=== PATIENT | female | born 1985 | race Caucasian/White ===

== ENCOUNTER → 2016-11-26 | Outpatient (CLI) | payer OTHER ==
[~2016-11-26] MED LIST: CITA40TA12 PO; GABA800T PO
== END | disposition home or self-care (01) ==
LOC: C.PAPS 15:12
PROVIDERS: ATTEND Obstetrics & Gynecology
DX: Z12.4 Encounter for screening for malignant neoplasm of cervix (principal)

== ENCOUNTER → 2017-05-21 | Outpatient (CLI) | payer OTHER ==
--- NOTE | 2017-05-21 15:24 | MAMMOGRAPHY REPORT ---
UNILATERAL LEFT DIGITAL DIAGNOSTIC MAMMOGRAM TOMOSYNTHESIS WITH CAD AND TARGETED BILATERAL ULTRASOUND : 05/21/2017 CLINICAL HISTORY: The patient reports a tender palpable lump in the left axillary region for approxim ately 3 months. Her clinician also felt a palpable right axillary lump during a routine clinical exa m. Family history of breast cancer in her mother. TECHNIQUE: Breast tomosynthesis in addition to standard 2D mammography was performed. Current study was also evaluated with a Computer Aided Detection (CAD) system. Bilateral CC and MLO 2-D and tomosy nthesis images were obtained. COMPARISON: No prior exams were available for comparison. BREAST COMPOSITION: The tissue of the left breast is heterogeneously dense, which may obscure small masses. FINDINGS: [place] markers lauren the sites of palpable lumps in bilateral axillary regions. No suspic ious masses or other suspicious mammographic abnormalities are seen in the region of the triangle mar kers. In the right breast at approximately 9:00, best seen on the tomosynthesis images, there is a p ossible 9 mm mass, for which ultrasound was performed. Additionally, in the left lateral breast seen on the cc view only, there is a partially circumscribed and partially obscured 12 mm mass for which ultrasound was performed. The remainder of both breasts demonstrate no suspicious masses, calcificat ions, or areas of architectural distortion. Targeted ultrasound was performed of the area of the palpable tender lump pointed out by the patient in the left axillary region as well as palpable finding in the right axillary region. No suspicious masses or other suspicious sonographic abnormalities are evident. Bilateral axillary lymph nodes are seen, which are normal in shape and have normal fatty tara. The cortices are at the upper limits of normal although appear symmetric bilaterally and are felt to be within normal limits. No clearly ab normal lymph nodes are seen. In the left breast at 2:00, 3 cm from the nipple, there is an oval circumscribed hypoechoic solid 13 x 8 x 4 mm mass. This corresponds with the mammographic mass. The mass is indeterminate and ultraso und-guided core needle biopsy is recommended for further evaluation. This likely represents a fibroa denoma. In the left breast at 3:00, 3 cm from the nipple, there is an oval circumscribed hypoechoic cystic versus solid 4 x 5 mm mass which is probably benign. In the right breast at 9:00, 3 cm from t he nipple, there is a lobulated hypoechoic solid 8 x 8 x 6 mm mass. This is felt to correspond with the other mammographic mass and is indeterminate. Recommend ultrasound-guided core needle biopsy for further evaluation. This likely represents a fibroadenoma. 2 other smaller similar appearing hypoe choic circumscribed masses are seen within the right breast at 9:00, approximately 4 cm from the nipp le, one measuring 3 x 4 mm and the other measuring 4 x 6 mm. These likely also represent fibroadenom as. IMPRESSION: ACR BI-RADS CATEGORY 4: SUSPICIOUS, TARGETED ULTRASOUND ACR BI-RADS CATEGORY 4: SUSPICIO US 1. Hypoechoic 13 mm mass in the left breast at 2:00 and 8 mm hypoechoic mass in the right 9:00 breas t. The masses are indeterminate and ultrasound-guided biopsy 2 is recommended for further evaluatio n. These likely represent fibroadenomas. 2. Three smaller similar-appearing hypoechoic circumscribed masses within the left 3:00 and right 9:0 0 breast, which are probably benign and likely represent fibroadenomas. Pending benign pathology res ults, recommend follow-up bilateral targeted ultrasound and possible mammograms in 6 months to confir m stability. 3. No suspicious mammographic or sonographic abnormalities at the site of bilateral axillary lumps. Recommend clinical follow-up; any decision to biopsy should be based on clinical grounds. Amina jones, the axillary regions can be reassessed at the time of the 6 month follow-up. A phone call was made to the physician's office to confirm faxed results were received. The patient has been verbally notified of the results. She tentatively scheduled the biopsies before leaving the department. Approximately 10% of breast cancers are not detected with mammography. A negative mammographic report should not delay biopsy if a clinically suggestive mass is present. Andreea Silverio M.D. ah/:05/21/2017 12:11:35 Yacht Hand: Juana ABBASI(Michael)(M), [facility] letter sent: Abnormal 4/5 BI-RADS Code: ACR BI-RADS Category 4: Suspicious Ultrasound BI-RADS: ACR BI-RADS Category 4: Suspici ous
== END | disposition home or self-care (01) ==
LOC: C.MAMM 11:23
PROVIDERS: ATTEND Nurse Practitioner
DX: N64.4 Mastodynia (principal); N63.21 Unspecified lump in the left breast, upper outer quadrant; N63.10 Unspecified lump in the right breast, unspecified quadrant

== ENCOUNTER → 2017-06-16 | Outpatient (CLI) | payer OTHER ==
--- NOTE | 2017-06-16 13:38 | Discharge Instructions ---
Discharge Instructions Procedure Procedure Date: Jun 16, 2017. Reason for visit: Bilateral Masses. Discharge Discharge Date: Jun 16, 2017. Discharge Diagnosis: post bilateral breast ultrasound guided core biopsies Instructions Activity Recommendations: Additional Limitations (see below) Return to School/Work: no limitations Recommended Home Diet: No Limitations Provider Instructions: ACTIVITY RECOMMENDATIONS: * No lifting, pushing, pulling or exercising the affected side for three days. RETURN TO SCHOOL/WORK: * You may return to work/school after the procedure, but do not perform any strenuous activities for 24 to 48 hours. MEDICATIONS: * Tylenol (two 325 mg) every four to six hours if needed for mild pain (if not allergic to Tylenol). DIET: * Resume previous diet. SPECIAL CARE INSTRUCTIONS: * Keep biopsy site dry for 24 hours. May shower after 24 hours, but do not soak (bathe) incision. * May remove Tegaderm (plastic patch) tomorrow AFTER showering. * Leave the steri-strips on for one week. Allow the steri-strips to fall off by themselves. If not off after one week, you may remove them. You may place a Bandaid crosswise over the strips, if desired. * Apply ice 10 minutes on and 10 minutes off as needed. * Wear a bra at bedtime to sleep more comfortably for 2-3 days. * Your referring physician should have the results after approximately 5 to 7 business days. * Call for unusual bleeding, fever, drainage, etc or if you have any questions call [phone] during normal business hours or after hours call Dr Dempsey, . FOLLOW UP VISIT: Follow-up with Referring Physician as scheduled. Allergies Coded Allergies: No Known Allergies (Verified , 12/22/15) Merlin Hi Recommendations: Call your doctor if: * Temperature above 101 degrees * Pain not relieved by pain medicine ordered * There is increased drainage or redness from any incision * You have any unanswered questions or concerns. Your Doctors Instructions noted above were prepared by provider Ale Dempsey. Patient Signature Section: Patient Instructions Signature Page Santa Zimmerman Patient (or Guardian) Signature/Date: I have read and understand the instructions given to me by my caregivers. Caregiver/RN/Doctor Signature/Date: The above-named patient and/or guardian has received patient instructions on this date. + Original Patient Signature Page (only) stays with chart. Please make copy for patient.
--- NOTE | 2017-06-19 13:19 | MAMMOGRAPHY REPORT ---
ULTRASOUND GUIDED BIOPSY RIGHT BREAST: 06/16/2017 CLINICAL HISTORY: Indeterminate 13 mm solid mass in the right breast at 9:00 and 8mm mass in the left breast at 2:00. Patient presents for ultrasound-guided core biopsy in each breast. COMPARISON: Comparison is made to exams dated: 05/21/2017 mammogram, 05/21/2017 ultrasound, and 018 mammogram - [facility]. PATIENT CONSENT: The procedure, risks and benefits were discussed with the patient and informed conse nt was obtained both verbally and in writing. Specific risks to this procedure include: bleeding, in fection, puncture of adjacent structure, nontarget biopsy, sampling error, pain, metal allergy and me dication reaction. PROCEDURE DESCRIPTION: A time out was performed and both breasts were agreed as sites for biopsy. Fi rst, the skin of the right lateral breast was prepped and draped in the usual sterile fashion. The s olid 13 mm mass in the 9:00 right breast was identified and targeted for biopsy. Subcutaneous and int raparenchymal 1% buffered lidocaine, with and without epinephrine, was administered as local anesthes ia. A skin incision was made. Through the incision, 4 samples were taken with a 14 gauge Achieve bio psy device. A ribbon shaped metallic marker was placed at the biopsy site. Hemostasis was achieved af ter manual compression. The patient tolerated the procedure well and there was no immediate complicat ion. Second, the skin of the left lateral breast was cleansed with Betadine and prepped and draped in the usual sterile fashion. The 8 mm solid mass in the 2:00 left breast was identified and targeted for b iopsy. Additional subcutaneous and intraparenchymal 1% buffered lidocaine, with and without epinephr ine was administered as local anesthesia. A skin incision was made. Through the incision, 3 samples were taken with a 14 gauge Achieve biopsy device. A ribbon shaped metallic marker was placed at the b iopsy site. Hemostasis was achieved after manual compression. The patient tolerated the procedure wel l and there was no immediate complication. All of the samples were sent to the pathology department in an appropriately labeled containers. Postprocedure CC and ML tomosynthesis views of each breast were obtained. A new ribbon-shaped biopsy marker clips are seen in the 9:00 posterior right breast and 2:00 posterior left breast, at the site of recent biopsy. No significant postbiopsy hematoma identified. Pending benign pathology results, follow-up bilateral diagnostic mammograms and repeat targeted ultrasound is recommended to ensure st ability of other smaller but similar appearing masses previously seen in both breasts. IMPRESSION: ULTRASOUND GUIDED BIOPSY Status post ultrasound-guided core biopsy of an indeterminate 13 mm mass in the 9:00 right breast and 8 mm mass in the 2:00 left breast, with biopsy marker clips placed at each site. Pending benign pathology results, follow-up bilateral diagnostic mammograms and repeat ultrasound is recommended to ensure stability of other smaller but similar appearing solid masses. The patient will receive notification of the biopsy results from her referring physician. Ale Dempsey M.D. ay/:06/16/2017 13:54:05 Adjunct Faculty For Medical Terminology: Juana Honeycutt, [facility]
--- NOTE | 2017-06-19 13:20 | MAMMOGRAPHY REPORT ---
ULTRASOUND GUIDED BIOPSY: 06/16/2017 CLINICAL HISTORY: Indeterminate solid lobulated and circumscribed masses in the right breast at 9:00 and left breast at 2:00. Patient presents for ultrasound-guided core biopsy in each breast. Please refer to the report from right breast ultrasound guided core biopsy performed at the same time for full detail, which describes both the right and left breast biopsies and the post procedure imag ing. IMPRESSION: ULTRASOUND GUIDED BIOPSY Please refer to the report from right breast ultrasound guided core biopsy performed at the same time for full detail, which describes both the right and left breast biopsies and the post procedure imag ing. Ale Dempsey M.D. ay/:06/16/2017 13:39:43 Lithographer Apprentice: Juana Honeycutt, [facility]
--- NOTE | 2017-06-19 13:28 | MAMMOGRAPHY REPORT ---
BILATERAL DIGITAL DIAGNOSTIC MAMMOGRAM TOMOSYNTHESIS: 06/16/2017 CLINICAL HISTORY: Status post ultrasound guided core biopsy of indeterminate solid masses in the righ t breast at 9:00 in left breast at 2:00. Please refer to the report from right breast ultrasound guided core biopsy performed at the same time for full detail, which describes both the right and left breast biopsies and the post procedure imag ing. IMPRESSION: POST PROCEDURE IMAGING FOR MARKER PLACEMENT Please refer to the report from right breast ultrasound guided core biopsy performed at the same time for full detail, which describes both the right and left breast biopsies and the post procedure imag ing. Approximately 10% of breast cancers are not detected with mammography. A negative mammographic report should not delay biopsy if a clinically suggestive mass is present. Ale Dempsey M.D. ay/:06/16/2017 13:39:07 Water Resource Consultant: Juana Honeycutt, [facility] BI-RADS Code: Post Procedure Imaging For Marker Placement
== END | disposition home or self-care (01) ==
LOC: C.MAMM 12:46
PROVIDERS: ATTEND Nurse Practitioner
DX: N60.91 Unspecified benign mammary dysplasia of right breast (principal); D24.2 Benign neoplasm of left breast

== ENCOUNTER 2017-11-20 19:59 | Emergency (ER) | payer OTHER ==
[~2017-11-20] VITALS: Ht 157.5 cm; Wt 69.9 kg
[2017-11-20 20:03] VITALS: TEMP 37; Ht 157.5 cm; Wt 69.9 kg
[2017-11-20] MEDS ORDERED: TRAMADOL HCL 50 MG TAB PO STA (20:21)
[2017-11-20] MEDS ORDERED: ACETAMINOPHEN 500 MG TAB PO STA (20:21)
[2017-11-20] MEDS ORDERED: ONDANSETRON 4MG OD TAB PO ONE (20:30)
--- NOTE | 2017-11-20 21:02 | DIAGNOSTIC IMAGING REPORT ---
CT SCAN OF THE BRAIN WITHOUT IV CONTRAST CLINICAL HISTORY: Headache. Head injury. COMPARISON STUDY: CT of the brain dated 04/27/2015. TECHNIQUE: Unenhanced axial CT scan of the brain is performed from the vertex to the skull base. A dose lowering technique was utilized adhering to the principles of ALARA. CT DOSE: 1311.06 mGy.cm FINDINGS: Brain parenchyma: The brain parenchyma is normal in appearance. There is no hemorrhage, mass effect, or evidence of acute territorial ischemia by CT criteria. Royal-white matter is preserved. No extra-axial fluid collection is seen. Ventricles, sulci, cisterns: Normal in configuration. Intracranial vasculature: The visualized intracranial vasculature at the skull base is normal in appearance. Calvarium: There is no depressed calvarial fracture. Soft tissues: There is a small left frontal scalp contusion. Sinuses and mastoids: There is subtotal opacification of the right maxillary antrum. Thickening and sclerosis of the sinus wall suggests chronicity. Moderate mucosal thickening is seen in the ethmoid sinuses. Mild mucosal thickening is seen in the sphenoid sinuses. The mastoid air cells are well pneumatized. Orbits: The bony orbits are grossly intact. IMPRESSION: 1. No acute intracranial abnormality. 2. Paranasal sinus disease as above. Electronically signed by: Sam Morales M.D. 11/20/2017 9:00 PM Dictated Date/Time: 11/20/2017 8:58 PM
--- NOTE | 2017-11-20 21:55 | DIAGNOSTIC IMAGING REPORT ---
CERVICAL SPINE 5 VIEWS CLINICAL HISTORY: Neck pain. FINDINGS: AP, lateral, bilateral oblique, and odontoid views of the cervical spine are correlated with CT scan of the cervical spine dated 04/27/2015. The skeletal structures are well mineralized. There is no radiographic evidence of fracture or subluxation. The odontoid process and lateral masses appear intact on the open mouth view. The spinolaminar line is preserved. Vertebral body height and alignment are maintained. There is straightening of the cervical lordosis. The spinous processes appear intact. The intervertebral disc spaces are normal. There is no evidence of neuroforaminal stenosis on the oblique views. The prevertebral soft tissues are within normal limits. Visualized apical lung parenchyma appears clear. IMPRESSION: Unremarkable radiographic assessment of the cervical spine. Electronically signed by: Sam Morales M.D. 11/20/2017 9:54 PM Dictated Date/Time: 11/20/2017 9:53 PM
[2017-11-20] MEDS ORDERED: OXYCODONE HCL IR 5 MG TAB (IMMEDIATE RELEASE) PO STA (22:18)
[2017-11-20] MEDS ORDERED: TRAM-10 PO (23:23)
[2017-11-20] MEDS ORDERED: ONDA4TAB10 SL (23:23)
[2017-11-20] MEDS ORDERED: ONDANSETRON HOME PACK 4MG OD TAB PO ONE (23:30)
[2017-11-20] MEDS ORDERED: TRAMADOL HCL 50 MG HOME PACK PO ONE (23:30)
[2017-11-20 23:50] VITALS: BP 126/78; PULSE 80; O2SAT 96
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
== END 2017-11-20 23:50 | disposition home or self-care (01) ==
LOC: C.EDB 20:00 → C.EDD 23:50
DX: S06.0X0A Concussion without loss of consciousness, initial encounter (principal); S00.83XA Contusion of other part of head, initial encounter; S16.1XXA Strain of muscle, fascia and tendon at neck level, initial encounter; F17.200 Nicotine dependence, unspecified, uncomplicated; F31.9 Bipolar disorder, unspecified; E11.9 Type 2 diabetes mellitus without complications; K21.9 Gastro-esophageal reflux disease without esophagitis; Z79.899 Other long term (current) drug therapy; Y04.8XXA Assault by other bodily force, initial encounter